=== PATIENT | female | born 1945 | race Caucasian/White ===

== ENCOUNTER 2021-11-19 16:54 | Inpatient (IN) ==
[2021-11-19] MEDS ORDERED: Nitroglycerin 0.4 MG TAB.SUBL SL PRN (19:29)
[2021-11-20] MEDS: Diclofenac Sodium (DR) 50 MG TABLET.DR PO PRN (15:20)
[2021-11-20] MEDS: Azelastine 0.1% Nasal Spray 30 ML BOTTLE NS SCH (20:17)
[2021-11-20] MEDS: Fluticasone Propionate Nasal 50 MCG/SPRAY BOTTLE NS SCH (20:17)
[2021-11-20] MEDS: Nystatin POWDER 30 GM BOTTLE TP SCH (20:18)
[2021-11-20] MEDS: Gabapentin 300 MG CAPSULE PO SCH (20:20)
[2021-11-21] MEDS: *HR* Enoxaparin 40 MG/0.4 ML SYRINGE SQ SCH (06:25)
[2021-11-21 08:07] LABS: Basophils # 0.1 K/mcL (0.0-0.2); Basophils % 0.8 %; Eosinophils # 0.2 K/mcL (0.0-0.6); Eosinophils % 2.5 %; Hematocrit 34.6 % (35.3-44.9); Hemoglobin 11.7 g/dL (11.5-15.4); Immature Granulocytes % 0.3 % (0-4); Lymphocytes # 1.6 K/mcL (0.6-4.6); Mean Corpuscular HGB Conc 33.8 g/dL (31.6-35.5); Mean Corpuscular Hemoglobin 32.3 pg (28.0-33.3); Mean Corpuscular Volume 95.6 fL (83.0-100.0); Mean Platelet Volume 8.2 fL (9.4-12.4); Monocytes # 0.5 K/mcL (0.0-1.3); Neutrophils # 3.7 K/mcL (1.6-8.9); Platelet Count 194 K/mcL (140-400); Red Blood Count 3.62 M/mcL (3.82-4.97); Red Cell Distribution Width 14.2 % (11.5-14.5); Segmented Neutrophils % 61.4 %
[2021-11-21 08:23] LABS: BUN/Creatinine Ratio 20 (6-26); Blood Urea Nitrogen 18 mg/dL (8-23); Calcium 8.5 mg/dL (8.6-10.3); Carbon Dioxide 31 mEq/L (23-29); Chloride 103 mEq/L (98-107); Glucose 88 mg/dL (70-105); Osmolality,Calculated 287 (280-300); Sodium 138 mEq/L (136-145); eGFR For African Americans > 60 (> 60); eGFR For Non-African Americans > 60 (> 60)
[2021-11-21] MEDS: Aspirin Enteric Coated 81 MG Tablet PO SCH (09:04)
[2021-11-21] MEDS: Vitamin B Complex/Vit C/Vit E 1 EACH TABLET PO SCH (09:04)
[2021-11-21] MEDS: Vitamin E 200 UNIT (90MG) CAPSULE PO SCH (09:04)
[2021-11-21] MEDS: CarBAMazepine 100 MG TABLET PO SCH (09:05)
[2021-11-21] MEDS: Furosemide 20 MG TABLET PO SCH (09:08)
[2021-11-21] MEDS: Spironolactone 25 MG TABLET PO SCH (09:09)
[2021-11-21] MEDS: Loratadine 10 MG TABLET PO SCH (09:09)
[2021-11-21] MEDS: Ascorbic Acid 500 MG TABLET PO SCH (09:09)
[2021-11-21] MEDS: Fluticasone Propionate Nasal 50 MCG/SPRAY BOTTLE NS SCH ×2 (09:10→21:08)
[2021-11-21] MEDS: Azelastine 0.1% Nasal Spray 30 ML BOTTLE NS SCH ×2 (09:11→21:08)
[2021-11-21] MEDS: Nystatin POWDER 30 GM BOTTLE TP SCH ×2 (09:15→21:08)
[2021-11-21] MEDS: Gabapentin 300 MG CAPSULE PO SCH (21:07)
[2021-11-21] MEDS: Diclofenac Sodium (DR) 50 MG TABLET.DR PO PRN (21:07)
[2021-11-22] MEDS: *HR* Enoxaparin 40 MG/0.4 ML SYRINGE SQ SCH (05:49)
[2021-11-22] MEDS: Vitamin E 200 UNIT (90MG) CAPSULE PO SCH (08:11)
[2021-11-22] MEDS: CarBAMazepine 100 MG TABLET PO SCH (08:11)
[2021-11-22] MEDS: Aspirin Enteric Coated 81 MG Tablet PO SCH (08:12)
[2021-11-22] MEDS: Ascorbic Acid 500 MG TABLET PO SCH (08:12)
[2021-11-22] MEDS: Loratadine 10 MG TABLET PO SCH (08:13)
[2021-11-22] MEDS: Vitamin B Complex/Vit C/Vit E 1 EACH TABLET PO SCH (08:13)
[2021-11-22] MEDS: Spironolactone 25 MG TABLET PO SCH (08:13)
[2021-11-22] MEDS: Azelastine 0.1% Nasal Spray 30 ML BOTTLE NS SCH ×2 (08:14→22:03)
[2021-11-22] MEDS: Fluticasone Propionate Nasal 50 MCG/SPRAY BOTTLE NS SCH ×2 (08:14→22:03)
[2021-11-22] MEDS: Nystatin POWDER 30 GM BOTTLE TP SCH ×2 (08:19→22:04)
[2021-11-22] MEDS: Ezetimibe [Zetia] 10 MG Tablet PO SCH (08:20)
[2021-11-22] MEDS: Diclofenac Sodium (DR) 50 MG TABLET.DR PO PRN (14:34)
[2021-11-22] MEDS: Gabapentin 300 MG CAPSULE PO SCH (22:02)
[2021-11-23] MEDS: *HR* Enoxaparin 40 MG/0.4 ML SYRINGE SQ SCH (05:07)
[2021-11-23] MEDS: Vitamin B Complex/Vit C/Vit E 1 EACH TABLET PO SCH (08:39)
[2021-11-23] MEDS: Aspirin Enteric Coated 81 MG Tablet PO SCH (08:40)
[2021-11-23] MEDS: Fluticasone Propionate Nasal 50 MCG/SPRAY BOTTLE NS SCH ×2 (08:40→22:19)
[2021-11-23] MEDS: Nystatin POWDER 30 GM BOTTLE TP SCH ×2 (08:40→22:20)
[2021-11-23] MEDS: CarBAMazepine 100 MG TABLET PO SCH (08:40)
[2021-11-23] MEDS: Loratadine 10 MG TABLET PO SCH (08:40)
[2021-11-23] MEDS: Spironolactone 25 MG TABLET PO SCH (08:40)
[2021-11-23] MEDS: Azelastine 0.1% Nasal Spray 30 ML BOTTLE NS SCH ×2 (08:40→22:18)
[2021-11-23] MEDS: Ascorbic Acid 500 MG TABLET PO SCH (08:40)
[2021-11-23] MEDS: Furosemide 20 MG TABLET PO SCH (08:40)
[2021-11-23] MEDS: Vitamin E 200 UNIT (90MG) CAPSULE PO SCH (08:40)
[2021-11-23] MEDS: Sennosides/Docusate Sodium TABLET PO SCH (22:17)
[2021-11-23] MEDS: Gabapentin 300 MG CAPSULE PO SCH (22:19)
[2021-11-24] MEDS: *HR* Enoxaparin 40 MG/0.4 ML SYRINGE SQ SCH (06:17)
[2021-11-24] MEDS: Vitamin B Complex/Vit C/Vit E 1 EACH TABLET PO SCH (09:33)
[2021-11-24] MEDS: Aspirin Enteric Coated 81 MG Tablet PO SCH (09:33)
[2021-11-24] MEDS: Vitamin E 200 UNIT (90MG) CAPSULE PO SCH (09:33)
[2021-11-24] MEDS: Ascorbic Acid 500 MG TABLET PO SCH (09:33)
[2021-11-24] MEDS: CarBAMazepine 100 MG TABLET PO SCH (09:34)
[2021-11-24] MEDS: Sennosides/Docusate Sodium TABLET PO SCH ×2 (09:34→23:06)
[2021-11-24] MEDS: Fluticasone Propionate Nasal 50 MCG/SPRAY BOTTLE NS SCH ×2 (09:34→23:06)
[2021-11-24] MEDS: Spironolactone 25 MG TABLET PO SCH (09:34)
[2021-11-24] MEDS: Azelastine 0.1% Nasal Spray 30 ML BOTTLE NS SCH ×2 (09:34→23:06)
[2021-11-24] MEDS: Loratadine 10 MG TABLET PO SCH (09:34)
[2021-11-24] MEDS: Nystatin POWDER 30 GM BOTTLE TP SCH ×2 (09:35→23:07)
[2021-11-24] MEDS: Ezetimibe [Zetia] 10 MG Tablet PO SCH (09:35)
[2021-11-24] MEDS: Diclofenac Sodium (DR) 50 MG TABLET.DR PO PRN (18:16)
[2021-11-24] MEDS: Gabapentin 300 MG CAPSULE PO SCH (23:07)
[2021-11-25] MEDS: *HR* Enoxaparin 40 MG/0.4 ML SYRINGE SQ SCH (06:43)
[2021-11-25] MEDS: Furosemide 20 MG TABLET PO SCH (09:20)
[2021-11-25] MEDS: Ascorbic Acid 500 MG TABLET PO SCH (09:20)
[2021-11-25] MEDS: Vitamin E 200 UNIT (90MG) CAPSULE PO SCH (09:20)
[2021-11-25] MEDS: Aspirin Enteric Coated 81 MG Tablet PO SCH (09:20)
[2021-11-25] MEDS: CarBAMazepine 100 MG TABLET PO SCH (09:20)
[2021-11-25] MEDS: Vitamin B Complex/Vit C/Vit E 1 EACH TABLET PO SCH (09:20)
[2021-11-25] MEDS: Sennosides/Docusate Sodium TABLET PO SCH ×2 (09:20→21:53)
[2021-11-25] MEDS: Spironolactone 25 MG TABLET PO SCH (09:20)
[2021-11-25] MEDS: Loratadine 10 MG TABLET PO SCH (09:21)
[2021-11-25] MEDS: Nystatin POWDER 30 GM BOTTLE TP SCH ×2 (09:21→21:56)
[2021-11-25] MEDS: Azelastine 0.1% Nasal Spray 30 ML BOTTLE NS SCH ×2 (09:25→21:52)
[2021-11-25] MEDS: Fluticasone Propionate Nasal 50 MCG/SPRAY BOTTLE NS SCH ×2 (09:25→21:53)
[2021-11-25] MEDS: Gabapentin 300 MG CAPSULE PO SCH (21:54)
[2021-11-26] MEDS: *HR* Enoxaparin 40 MG/0.4 ML SYRINGE SQ SCH (06:00)
[2021-11-26] MEDS: Vitamin B Complex/Vit C/Vit E 1 EACH TABLET PO SCH (09:14)
[2021-11-26] MEDS: Aspirin Enteric Coated 81 MG Tablet PO SCH (09:15)
[2021-11-26] MEDS: Loratadine 10 MG TABLET PO SCH (09:16)
[2021-11-26] MEDS: Sennosides/Docusate Sodium TABLET PO SCH ×2 (09:16→20:22)
[2021-11-26] MEDS: CarBAMazepine 100 MG TABLET PO SCH (09:16)
[2021-11-26] MEDS: Ascorbic Acid 500 MG TABLET PO SCH (09:17)
[2021-11-26] MEDS: Ezetimibe [Zetia] 10 MG Tablet PO SCH (09:17)
[2021-11-26] MEDS: Vitamin E 200 UNIT (90MG) CAPSULE PO SCH (09:17)
[2021-11-26] MEDS: Spironolactone 25 MG TABLET PO SCH (09:17)
[2021-11-26] MEDS: Azelastine 0.1% Nasal Spray 30 ML BOTTLE NS SCH ×2 (09:18→20:23)
[2021-11-26] MEDS: Nystatin POWDER 30 GM BOTTLE TP SCH ×2 (09:18→20:23)
[2021-11-26] MEDS: Fluticasone Propionate Nasal 50 MCG/SPRAY BOTTLE NS SCH ×2 (09:18→20:23)
[2021-11-26] MEDS: Gabapentin 300 MG CAPSULE PO SCH (20:22)
[2021-11-27] MEDS: *HR* Enoxaparin 40 MG/0.4 ML SYRINGE SQ SCH (05:54)
[2021-11-27] MEDS: Furosemide 20 MG TABLET PO SCH (07:17)
[2021-11-27] MEDS: Vitamin E 200 UNIT (90MG) CAPSULE PO SCH (07:17)
[2021-11-27] MEDS: Diclofenac Sodium (DR) 50 MG TABLET.DR PO PRN (07:17)
[2021-11-27] MEDS: Aspirin Enteric Coated 81 MG Tablet PO SCH (07:17)
[2021-11-27] MEDS: Sennosides/Docusate Sodium TABLET PO SCH ×2 (07:17→20:11)
[2021-11-27] MEDS: CarBAMazepine 100 MG TABLET PO SCH (07:17)
[2021-11-27] MEDS: Loratadine 10 MG TABLET PO SCH (07:18)
[2021-11-27] MEDS: Ascorbic Acid 500 MG TABLET PO SCH (07:18)
[2021-11-27] MEDS: Azelastine 0.1% Nasal Spray 30 ML BOTTLE NS SCH ×2 (07:18→20:12)
[2021-11-27] MEDS: Fluticasone Propionate Nasal 50 MCG/SPRAY BOTTLE NS SCH ×2 (07:18→20:12)
[2021-11-27] MEDS: Spironolactone 25 MG TABLET PO SCH (07:18)
[2021-11-27] MEDS: Vitamin B Complex/Vit C/Vit E 1 EACH TABLET PO SCH (07:18)
[2021-11-27] MEDS: Nystatin POWDER 30 GM BOTTLE TP SCH ×2 (07:20→20:12)
[2021-11-27] MEDS: Gabapentin 300 MG CAPSULE PO SCH (20:11)
[2021-11-28] MEDS: *HR* Enoxaparin 40 MG/0.4 ML SYRINGE SQ SCH (06:12)
[2021-11-28 07:29] LABS: Hematocrit 33.8 % (35.3-44.9); Hemoglobin 11.3 g/dL (11.5-15.4); Mean Corpuscular HGB Conc 33.4 g/dL (31.6-35.5); Mean Corpuscular Hemoglobin 31.9 pg (28.0-33.3); Mean Corpuscular Volume 95.5 fL (83.0-100.0); Mean Platelet Volume 8.4 fL (9.4-12.4); Platelet Count 187 K/mcL (140-400); Red Blood Count 3.54 M/mcL (3.82-4.97); Red Cell Distribution Width 14.2 % (11.5-14.5); White Blood Count 6.4 K/mcL (4.3-11.1)
[2021-11-28 08:07] LABS: BUN/Creatinine Ratio 16 (6-26); Blood Urea Nitrogen 15 mg/dL (8-23); Calcium 8.4 mg/dL (8.6-10.3); Carbon Dioxide 28 mEq/L (23-29); Chloride 103 mEq/L (98-107); Glucose 83 mg/dL (70-105); Osmolality,Calculated 282 (280-300); Potassium 4.1 mEq/L (3.5-5.1); Sodium 136 mEq/L (136-145); eGFR For African Americans > 60 (> 60); eGFR For Non-African Americans > 60 (> 60)
[2021-11-28] MEDS: Vitamin E 200 UNIT (90MG) CAPSULE PO SCH (10:23)
[2021-11-28] MEDS: Vitamin B Complex/Vit C/Vit E 1 EACH TABLET PO SCH (10:23)
[2021-11-28] MEDS: Ascorbic Acid 500 MG TABLET PO SCH (10:23)
[2021-11-28] MEDS: Aspirin Enteric Coated 81 MG Tablet PO SCH (10:23)
[2021-11-28] MEDS: CarBAMazepine 100 MG TABLET PO SCH (10:24)
[2021-11-28] MEDS: Loratadine 10 MG TABLET PO SCH (10:24)
[2021-11-28] MEDS: Sennosides/Docusate Sodium TABLET PO SCH ×2 (10:24→20:44)
[2021-11-28] MEDS: Azelastine 0.1% Nasal Spray 30 ML BOTTLE NS SCH ×2 (10:25→20:43)
[2021-11-28] MEDS: Spironolactone 25 MG TABLET PO SCH (10:25)
[2021-11-28] MEDS: Nystatin POWDER 30 GM BOTTLE TP SCH ×2 (10:26→20:44)
[2021-11-28] MEDS: Fluticasone Propionate Nasal 50 MCG/SPRAY BOTTLE NS SCH ×2 (10:26→20:43)
[2021-11-28] MEDS: Gabapentin 300 MG CAPSULE PO SCH (20:44)
[2021-11-29] MEDS: *HR* Enoxaparin 40 MG/0.4 ML SYRINGE SQ SCH (06:27)
[2021-11-29] MEDS: Vitamin E 200 UNIT (90MG) CAPSULE PO SCH (08:44)
[2021-11-29] MEDS: Furosemide 20 MG TABLET PO SCH (08:44)
[2021-11-29] MEDS: Aspirin Enteric Coated 81 MG Tablet PO SCH (08:44)
[2021-11-29] MEDS: Ascorbic Acid 500 MG TABLET PO SCH (08:44)
[2021-11-29] MEDS: Loratadine 10 MG TABLET PO SCH (08:44)
[2021-11-29] MEDS: Sennosides/Docusate Sodium TABLET PO SCH ×2 (08:44→20:23)
[2021-11-29] MEDS: Spironolactone 25 MG TABLET PO SCH (08:44)
[2021-11-29] MEDS: Vitamin B Complex/Vit C/Vit E 1 EACH TABLET PO SCH (08:44)
[2021-11-29] MEDS: Fluticasone Propionate Nasal 50 MCG/SPRAY BOTTLE NS SCH ×2 (08:45→20:21)
[2021-11-29] MEDS: Nystatin POWDER 30 GM BOTTLE TP SCH ×2 (08:45→20:22)
[2021-11-29] MEDS: CarBAMazepine 100 MG TABLET PO SCH (08:45)
[2021-11-29] MEDS: Azelastine 0.1% Nasal Spray 30 ML BOTTLE NS SCH ×2 (08:45→20:20)
[2021-11-29] MEDS: Ezetimibe [Zetia] 10 MG Tablet PO SCH (08:48)
[2021-11-29] MEDS: *HR* HYDROcodone/Acet 5/325 mg TABLET PO PRN (14:53)
[2021-11-29] MEDS ORDERED: Diclofenac Sodium (DR) 50 MG TABLET.DR PO PRN (16:49)
[2021-11-29] MEDS: Gabapentin 300 MG CAPSULE PO SCH (20:23)
[2021-11-29 21:03] LABS: Bilirubin,Urine Negative (Negative); Blood,Urine Negative (Negative); Clarity,Urine Clear (Clear); Color,Urine Yellow (Yellow); Glucose,Urine (UA) Normal (Normal); Ketones,Urine Negative (Negative); Leukocyte Esterase,Urine Negative (Negative); Nitrite,Urine Negative (Negative); PH,Urine 6.5 pH Units (5.0-8.0); Protein,Urine Negative (Neg-Trace); Specific Gravity,Urine 1.015 (1.010-1.025); Urobilinogen,Urine Normal (Normal)
[2021-11-30] MEDS: *HR* Enoxaparin 40 MG/0.4 ML SYRINGE SQ SCH (05:59)
[2021-11-30] MEDS: Spironolactone 25 MG TABLET PO SCH (08:32)
[2021-11-30] MEDS: Sennosides/Docusate Sodium TABLET PO SCH ×2 (08:32→23:40)
[2021-11-30] MEDS: CarBAMazepine 100 MG TABLET PO SCH (08:32)
[2021-11-30] MEDS: Vitamin B Complex/Vit C/Vit E 1 EACH TABLET PO SCH (08:32)
[2021-11-30] MEDS: Ascorbic Acid 500 MG TABLET PO SCH (08:32)
[2021-11-30] MEDS: Aspirin Enteric Coated 81 MG Tablet PO SCH (08:33)
[2021-11-30] MEDS: Azelastine 0.1% Nasal Spray 30 ML BOTTLE NS SCH ×2 (08:33→23:40)
[2021-11-30] MEDS: Vitamin E 200 UNIT (90MG) CAPSULE PO SCH (08:33)
[2021-11-30] MEDS: Loratadine 10 MG TABLET PO SCH (08:33)
[2021-11-30] MEDS: Nystatin POWDER 30 GM BOTTLE TP SCH ×2 (08:33→23:41)
[2021-11-30] MEDS: Fluticasone Propionate Nasal 50 MCG/SPRAY BOTTLE NS SCH ×2 (08:33→23:40)
[2021-11-30] MEDS: Gabapentin 300 MG CAPSULE PO SCH (23:39)
[2021-12-01] MEDS: *HR* Enoxaparin 40 MG/0.4 ML SYRINGE SQ SCH (05:49)
[2021-12-01] MEDS: Azelastine 0.1% Nasal Spray 30 ML BOTTLE NS SCH ×2 (12:32→21:02)
[2021-12-01] MEDS: Fluticasone Propionate Nasal 50 MCG/SPRAY BOTTLE NS SCH ×2 (12:32→21:02)
[2021-12-01] MEDS: Loratadine 10 MG TABLET PO SCH (12:32)
[2021-12-01] MEDS: CarBAMazepine 100 MG TABLET PO SCH (12:32)
[2021-12-01] MEDS: Aspirin Enteric Coated 81 MG Tablet PO SCH (12:32)
[2021-12-01] MEDS: Spironolactone 25 MG TABLET PO SCH (12:32)
[2021-12-01] MEDS: Sennosides/Docusate Sodium TABLET PO SCH ×2 (12:33→21:01)
[2021-12-01] MEDS: Nystatin POWDER 30 GM BOTTLE TP SCH ×2 (12:33→21:00)
[2021-12-01] MEDS: Ascorbic Acid 500 MG TABLET PO SCH (12:33)
[2021-12-01] MEDS: Ezetimibe [Zetia] 10 MG Tablet PO SCH (12:33)
[2021-12-01] MEDS: Vitamin B Complex/Vit C/Vit E 1 EACH TABLET PO SCH (12:33)
[2021-12-01] MEDS: Vitamin E 200 UNIT (90MG) CAPSULE PO SCH (12:33)
[2021-12-01] MEDS: Furosemide 20 MG TABLET PO SCH (12:33)
[2021-12-01] MEDS: Gabapentin 300 MG CAPSULE PO SCH (21:01)
[2021-12-02] MEDS: *HR* Enoxaparin 40 MG/0.4 ML SYRINGE SQ SCH (08:20)
[2021-12-02] MEDS: Spironolactone 25 MG TABLET PO SCH (08:21)
[2021-12-02] MEDS: Vitamin E 200 UNIT (90MG) CAPSULE PO SCH (08:21)
[2021-12-02] MEDS: Ascorbic Acid 500 MG TABLET PO SCH (08:21)
[2021-12-02] MEDS: Vitamin B Complex/Vit C/Vit E 1 EACH TABLET PO SCH (08:21)
[2021-12-02] MEDS: Aspirin Enteric Coated 81 MG Tablet PO SCH (08:21)
[2021-12-02] MEDS: CarBAMazepine 100 MG TABLET PO SCH (08:21)
[2021-12-02] MEDS: Loratadine 10 MG TABLET PO SCH (08:22)
[2021-12-02] MEDS: Sennosides/Docusate Sodium TABLET PO SCH ×2 (08:22→21:04)
[2021-12-02] MEDS: Nystatin POWDER 30 GM BOTTLE TP SCH ×2 (08:23→21:04)
[2021-12-02] MEDS: Fluticasone Propionate Nasal 50 MCG/SPRAY BOTTLE NS SCH ×2 (08:24→21:04)
[2021-12-02] MEDS: Azelastine 0.1% Nasal Spray 30 ML BOTTLE NS SCH ×2 (08:24→21:05)
[2021-12-02] MEDS: Gabapentin 300 MG CAPSULE PO SCH (21:03)
[2021-12-02] MEDS: *HR* HYDROcodone/Acet 5/325 mg TABLET PO PRN (21:04)
[2021-12-03] MEDS: *HR* Enoxaparin 40 MG/0.4 ML SYRINGE SQ SCH (05:04)
[2021-12-03 07:52] LABS: Hematocrit 35.7 % (35.3-44.9); Hemoglobin 11.9 g/dL (11.5-15.4); Mean Corpuscular HGB Conc 33.3 g/dL (31.6-35.5); Mean Corpuscular Hemoglobin 32.2 pg (28.0-33.3); Mean Corpuscular Volume 96.5 fL (83.0-100.0); Mean Platelet Volume 8.4 fL (9.4-12.4); Platelet Count 191 K/mcL (140-400); Red Cell Distribution Width 14.2 % (11.5-14.5); White Blood Count 6.6 K/mcL (4.3-11.1)
[2021-12-03] MEDS: Furosemide 20 MG TABLET PO SCH (08:06)
[2021-12-03] MEDS: Vitamin B Complex/Vit C/Vit E 1 EACH TABLET PO SCH (08:06)
[2021-12-03] MEDS: Aspirin Enteric Coated 81 MG Tablet PO SCH (08:06)
[2021-12-03] MEDS: CarBAMazepine 100 MG TABLET PO SCH (08:06)
[2021-12-03 08:07] LABS: BUN/Creatinine Ratio 17 (6-26); Blood Urea Nitrogen 16 mg/dL (8-23); Calcium 8.8 mg/dL (8.6-10.3); Carbon Dioxide 31 mEq/L (23-29); Chloride 101 mEq/L (98-107); Glucose 95 mg/dL (70-105); Osmolality,Calculated 285 (280-300); Potassium 4.1 mEq/L (3.5-5.1); Sodium 137 mEq/L (136-145); eGFR For African Americans > 60 (> 60); eGFR For Non-African Americans 57 (> 60)
[2021-12-03] MEDS: Sennosides/Docusate Sodium TABLET PO SCH ×2 (08:07→20:17)
[2021-12-03] MEDS: Spironolactone 25 MG TABLET PO SCH (08:08)
[2021-12-03] MEDS: Loratadine 10 MG TABLET PO SCH (08:08)
[2021-12-03] MEDS: Ascorbic Acid 500 MG TABLET PO SCH (08:08)
[2021-12-03] MEDS: Nystatin POWDER 30 GM BOTTLE TP SCH ×2 (08:08→20:17)
[2021-12-03] MEDS: Fluticasone Propionate Nasal 50 MCG/SPRAY BOTTLE NS SCH ×2 (08:10→20:16)
[2021-12-03] MEDS: Azelastine 0.1% Nasal Spray 30 ML BOTTLE NS SCH ×2 (08:10→20:15)
[2021-12-03] MEDS: Vitamin E 200 UNIT (90MG) CAPSULE PO SCH (08:20)
[2021-12-03] MEDS: Ezetimibe [Zetia] 10 MG Tablet PO SCH (12:22)
[2021-12-03] MEDS: Gabapentin 300 MG CAPSULE PO SCH (20:16)
[2021-12-03] MEDS: *HR* HYDROcodone/Acet 5/325 mg TABLET PO PRN (20:17)
[2021-12-04] MEDS: *HR* Enoxaparin 40 MG/0.4 ML SYRINGE SQ SCH (06:37)
[2021-12-04] MEDS: Fluticasone Propionate Nasal 50 MCG/SPRAY BOTTLE NS SCH ×2 (09:04→21:33)
[2021-12-04] MEDS: Azelastine 0.1% Nasal Spray 30 ML BOTTLE NS SCH ×2 (09:04→21:34)
[2021-12-04] MEDS: Aspirin Enteric Coated 81 MG Tablet PO SCH (09:05)
[2021-12-04] MEDS: Vitamin B Complex/Vit C/Vit E 1 EACH TABLET PO SCH (09:05)
[2021-12-04] MEDS: Vitamin E 200 UNIT (90MG) CAPSULE PO SCH (09:05)
[2021-12-04] MEDS: Loratadine 10 MG TABLET PO SCH (09:05)
[2021-12-04] MEDS: Ascorbic Acid 500 MG TABLET PO SCH (09:05)
[2021-12-04] MEDS: CarBAMazepine 100 MG TABLET PO SCH (09:05)
[2021-12-04] MEDS: Spironolactone 25 MG TABLET PO SCH (09:06)
[2021-12-04] MEDS: Nystatin POWDER 30 GM BOTTLE TP SCH ×2 (09:06→21:45)
[2021-12-04] MEDS: Sennosides/Docusate Sodium TABLET PO SCH ×2 (09:06→21:29)
[2021-12-04] MEDS: Gabapentin 300 MG CAPSULE PO SCH (21:33)
[2021-12-05] MEDS: *HR* Enoxaparin 40 MG/0.4 ML SYRINGE SQ SCH (06:03)
[2021-12-05] MEDS: Fluticasone Propionate Nasal 50 MCG/SPRAY BOTTLE NS SCH ×2 (08:41→21:24)
[2021-12-05] MEDS: Azelastine 0.1% Nasal Spray 30 ML BOTTLE NS SCH ×2 (08:41→21:23)
[2021-12-05] MEDS: Vitamin E 200 UNIT (90MG) CAPSULE PO SCH (08:42)
[2021-12-05] MEDS: Vitamin B Complex/Vit C/Vit E 1 EACH TABLET PO SCH (08:42)
[2021-12-05] MEDS: Aspirin Enteric Coated 81 MG Tablet PO SCH (08:42)
[2021-12-05] MEDS: Sennosides/Docusate Sodium TABLET PO SCH ×2 (08:43→21:28)
[2021-12-05] MEDS: Furosemide 20 MG TABLET PO SCH (08:43)
[2021-12-05] MEDS: Spironolactone 25 MG TABLET PO SCH (08:43)
[2021-12-05] MEDS: Ascorbic Acid 500 MG TABLET PO SCH (08:43)
[2021-12-05] MEDS: Nystatin POWDER 30 GM BOTTLE TP SCH ×2 (08:43→21:31)
[2021-12-05] MEDS: CarBAMazepine 100 MG TABLET PO SCH (08:43)
[2021-12-05] MEDS: Loratadine 10 MG TABLET PO SCH (08:43)
[2021-12-05] MEDS: Methyl Salicylate/Menthol 85 APPL/85 GM TUBE TP SCH ×2 (17:58→21:27)
[2021-12-05] MEDS ORDERED: Methyl Salicylate/Menthol 85 APPL/85 GM TUBE TP SCH (21:00)
[2021-12-05] MEDS: Gabapentin 300 MG CAPSULE PO SCH (21:23)
[2021-12-06] MEDS: *HR* Enoxaparin 40 MG/0.4 ML SYRINGE SQ SCH (05:32)
[2021-12-06] MEDS: Sennosides/Docusate Sodium TABLET PO SCH ×2 (09:05→21:10)
[2021-12-06] MEDS: Fluticasone Propionate Nasal 50 MCG/SPRAY BOTTLE NS SCH ×2 (09:05→21:09)
[2021-12-06] MEDS: Azelastine 0.1% Nasal Spray 30 ML BOTTLE NS SCH ×2 (09:05→21:09)
[2021-12-06] MEDS: Aspirin Enteric Coated 81 MG Tablet PO SCH (09:05)
[2021-12-06] MEDS: Ezetimibe [Zetia] 10 MG Tablet PO SCH (09:06)
[2021-12-06] MEDS: Nystatin POWDER 30 GM BOTTLE TP SCH ×2 (09:06→21:11)
[2021-12-06] MEDS: CarBAMazepine 100 MG TABLET PO SCH (09:06)
[2021-12-06] MEDS: Loratadine 10 MG TABLET PO SCH (09:06)
[2021-12-06] MEDS: Methyl Salicylate/Menthol 85 APPL/85 GM TUBE TP SCH ×2 (09:06→21:10)
[2021-12-06] MEDS: Spironolactone 25 MG TABLET PO SCH (09:06)
[2021-12-06] MEDS: Vitamin B Complex/Vit C/Vit E 1 EACH TABLET PO SCH (09:06)
[2021-12-06] MEDS: Ascorbic Acid 500 MG TABLET PO SCH (09:06)
[2021-12-06] MEDS: Vitamin E 200 UNIT (90MG) CAPSULE PO SCH (17:12)
[2021-12-06] MEDS: Gabapentin 300 MG CAPSULE PO SCH (21:10)
[2021-12-07] MEDS: *HR* Enoxaparin 40 MG/0.4 ML SYRINGE SQ SCH (06:17)
[2021-12-07] MEDS: Sennosides/Docusate Sodium TABLET PO SCH ×2 (08:29→19:45)
[2021-12-07] MEDS: Spironolactone 25 MG TABLET PO SCH (08:29)
[2021-12-07] MEDS: Aspirin Enteric Coated 81 MG Tablet PO SCH (08:29)
[2021-12-07] MEDS: Loratadine 10 MG TABLET PO SCH (08:29)
[2021-12-07] MEDS: CarBAMazepine 100 MG TABLET PO SCH (08:29)
[2021-12-07] MEDS: Vitamin B Complex/Vit C/Vit E 1 EACH TABLET PO SCH (08:29)
[2021-12-07] MEDS: Ascorbic Acid 500 MG TABLET PO SCH (08:29)
[2021-12-07] MEDS: Furosemide 20 MG TABLET PO SCH (08:29)
[2021-12-07] MEDS: Vitamin E 200 UNIT (90MG) CAPSULE PO SCH (08:29)
[2021-12-07] MEDS: Methyl Salicylate/Menthol 85 APPL/85 GM TUBE TP SCH ×2 (08:30→19:44)
[2021-12-07] MEDS: Nystatin POWDER 30 GM BOTTLE TP SCH ×2 (08:30→19:45)
[2021-12-07] MEDS: Azelastine 0.1% Nasal Spray 30 ML BOTTLE NS SCH ×2 (08:33→19:44)
[2021-12-07] MEDS: Fluticasone Propionate Nasal 50 MCG/SPRAY BOTTLE NS SCH ×2 (08:33→19:44)
[2021-12-07] MEDS: Gabapentin 300 MG CAPSULE PO SCH (19:43)
[2021-12-08] MEDS: *HR* Enoxaparin 40 MG/0.4 ML SYRINGE SQ SCH (05:39)
[2021-12-08] MEDS: Vitamin B Complex/Vit C/Vit E 1 EACH TABLET PO SCH (08:00)
[2021-12-08] MEDS: Vitamin E 200 UNIT (90MG) CAPSULE PO SCH (08:00)
[2021-12-08] MEDS: Aspirin Enteric Coated 81 MG Tablet PO SCH (08:00)
[2021-12-08] MEDS: Azelastine 0.1% Nasal Spray 30 ML BOTTLE NS SCH ×2 (08:00→21:19)
[2021-12-08] MEDS: Sennosides/Docusate Sodium TABLET PO SCH ×2 (08:00→21:22)
[2021-12-08] MEDS: Spironolactone 25 MG TABLET PO SCH (08:00)
[2021-12-08] MEDS: CarBAMazepine 100 MG TABLET PO SCH (08:00)
[2021-12-08] MEDS: Loratadine 10 MG TABLET PO SCH (08:00)
[2021-12-08] MEDS: Ascorbic Acid 500 MG TABLET PO SCH (08:00)
[2021-12-08] MEDS: Fluticasone Propionate Nasal 50 MCG/SPRAY BOTTLE NS SCH ×2 (08:00→21:20)
[2021-12-08] MEDS: Ezetimibe [Zetia] 10 MG Tablet PO SCH (08:01)
[2021-12-08] MEDS: Nystatin POWDER 30 GM BOTTLE TP SCH ×2 (08:05→21:21)
[2021-12-08] MEDS: Methyl Salicylate/Menthol 85 APPL/85 GM TUBE TP SCH ×2 (08:05→21:20)
[2021-12-08] MEDS: Gabapentin 300 MG CAPSULE PO SCH (21:21)
[2021-12-09] MEDS: Acetaminophen 325 MG TABLET PO PRN (01:43)
[2021-12-09] MEDS: *HR* Enoxaparin 40 MG/0.4 ML SYRINGE SQ SCH (06:08)
[2021-12-09] MEDS: CarBAMazepine 100 MG TABLET PO SCH (08:07)
[2021-12-09] MEDS: Sennosides/Docusate Sodium TABLET PO SCH ×2 (08:07→19:43)
[2021-12-09] MEDS: Loratadine 10 MG TABLET PO SCH (08:07)
[2021-12-09] MEDS: Aspirin Enteric Coated 81 MG Tablet PO SCH (08:07)
[2021-12-09] MEDS: Ascorbic Acid 500 MG TABLET PO SCH (08:08)
[2021-12-09] MEDS: Fluticasone Propionate Nasal 50 MCG/SPRAY BOTTLE NS SCH ×2 (08:08→19:43)
[2021-12-09] MEDS: Vitamin B Complex/Vit C/Vit E 1 EACH TABLET PO SCH (08:08)
[2021-12-09] MEDS: Spironolactone 25 MG TABLET PO SCH (08:08)
[2021-12-09] MEDS: Azelastine 0.1% Nasal Spray 30 ML BOTTLE NS SCH ×2 (08:08→19:43)
[2021-12-09] MEDS: Furosemide 20 MG TABLET PO SCH (08:08)
[2021-12-09] MEDS: Vitamin E 200 UNIT (90MG) CAPSULE PO SCH (08:08)
[2021-12-09] MEDS: Methyl Salicylate/Menthol 85 APPL/85 GM TUBE TP SCH ×2 (08:09→19:43)
[2021-12-09] MEDS: Nystatin POWDER 30 GM BOTTLE TP SCH ×2 (08:31→19:43)
[2021-12-09] MEDS: Gabapentin 300 MG CAPSULE PO SCH (19:42)
[2021-12-10] MEDS: *HR* Enoxaparin 40 MG/0.4 ML SYRINGE SQ SCH (05:36)
[2021-12-10] MEDS: Aspirin Enteric Coated 81 MG Tablet PO SCH (08:35)
[2021-12-10] MEDS: Loratadine 10 MG TABLET PO SCH (08:35)
[2021-12-10] MEDS: Vitamin E 200 UNIT (90MG) CAPSULE PO SCH (08:35)
[2021-12-10] MEDS: Spironolactone 25 MG TABLET PO SCH (08:35)
[2021-12-10] MEDS: Ascorbic Acid 500 MG TABLET PO SCH (08:35)
[2021-12-10] MEDS: CarBAMazepine 100 MG TABLET PO SCH (08:35)
[2021-12-10] MEDS: Vitamin B Complex/Vit C/Vit E 1 EACH TABLET PO SCH (08:35)
[2021-12-10] MEDS: Ezetimibe [Zetia] 10 MG Tablet PO SCH (08:36)
[2021-12-10] MEDS: Sennosides/Docusate Sodium TABLET PO SCH ×2 (08:36→20:10)
[2021-12-10] MEDS: Azelastine 0.1% Nasal Spray 30 ML BOTTLE NS SCH ×2 (08:37→20:12)
[2021-12-10] MEDS: Fluticasone Propionate Nasal 50 MCG/SPRAY BOTTLE NS SCH ×2 (08:37→20:11)
[2021-12-10] MEDS: Nystatin POWDER 30 GM BOTTLE TP SCH ×2 (08:37→20:11)
[2021-12-10] MEDS: Methyl Salicylate/Menthol 85 APPL/85 GM TUBE TP SCH ×2 (08:38→20:13)
[2021-12-10] MEDS: *HR* HYDROcodone/Acet 5/325 mg TABLET PO PRN ×2 (11:36→18:47)
[2021-12-10] MEDS: Gabapentin 300 MG CAPSULE PO SCH (20:11)
[2021-12-11] MEDS: Acetaminophen 325 MG TABLET PO PRN (00:06)
[2021-12-11] MEDS: *HR* Enoxaparin 40 MG/0.4 ML SYRINGE SQ SCH (06:23)
[2021-12-11] MEDS: Aspirin Enteric Coated 81 MG Tablet PO SCH (09:42)
[2021-12-11] MEDS: Ascorbic Acid 500 MG TABLET PO SCH (09:43)
[2021-12-11] MEDS: Furosemide 20 MG TABLET PO SCH (09:43)
[2021-12-11] MEDS: Spironolactone 25 MG TABLET PO SCH (09:43)
[2021-12-11] MEDS: Vitamin E 200 UNIT (90MG) CAPSULE PO SCH (09:44)
[2021-12-11] MEDS: CarBAMazepine 100 MG TABLET PO SCH (09:44)
[2021-12-11] MEDS: Vitamin B Complex/Vit C/Vit E 1 EACH TABLET PO SCH (09:44)
[2021-12-11] MEDS: Fluticasone Propionate Nasal 50 MCG/SPRAY BOTTLE NS SCH ×2 (09:45→20:14)
[2021-12-11] MEDS: Loratadine 10 MG TABLET PO SCH (09:45)
[2021-12-11] MEDS: Nystatin POWDER 30 GM BOTTLE TP SCH ×2 (09:46→20:14)
[2021-12-11] MEDS: Azelastine 0.1% Nasal Spray 30 ML BOTTLE NS SCH ×2 (09:46→20:13)
[2021-12-11] MEDS: Methyl Salicylate/Menthol 85 APPL/85 GM TUBE TP SCH ×2 (09:47→20:13)
[2021-12-11] MEDS: Sennosides/Docusate Sodium TABLET PO SCH ×2 (09:48→20:14)
[2021-12-11] MEDS: Gabapentin 300 MG CAPSULE PO SCH (20:14)
[2021-12-12] MEDS: Acetaminophen 325 MG TABLET PO PRN (01:00)
[2021-12-12] MEDS: *HR* Enoxaparin 40 MG/0.4 ML SYRINGE SQ SCH (06:19)
[2021-12-12] MEDS: Vitamin E 200 UNIT (90MG) CAPSULE PO SCH (09:33)
[2021-12-12] MEDS: Vitamin B Complex/Vit C/Vit E 1 EACH TABLET PO SCH (09:33)
[2021-12-12] MEDS: Loratadine 10 MG TABLET PO SCH (09:34)
[2021-12-12] MEDS: Aspirin Enteric Coated 81 MG Tablet PO SCH (09:34)
[2021-12-12] MEDS: Ascorbic Acid 500 MG TABLET PO SCH (09:34)
[2021-12-12] MEDS: CarBAMazepine 100 MG TABLET PO SCH (09:36)
[2021-12-12] MEDS: Spironolactone 25 MG TABLET PO SCH (09:36)
[2021-12-12] MEDS: Sennosides/Docusate Sodium TABLET PO SCH ×2 (09:36→20:46)
[2021-12-12] MEDS: Nystatin POWDER 30 GM BOTTLE TP SCH ×2 (09:37→20:57)
[2021-12-12] MEDS: Fluticasone Propionate Nasal 50 MCG/SPRAY BOTTLE NS SCH ×2 (09:37→20:57)
[2021-12-12] MEDS: Azelastine 0.1% Nasal Spray 30 ML BOTTLE NS SCH ×2 (09:37→20:57)
[2021-12-12] MEDS: Methyl Salicylate/Menthol 85 APPL/85 GM TUBE TP SCH ×2 (09:38→20:57)
[2021-12-12 19:41] VITALS: O2SAT 94
[2021-12-12] MEDS: Gabapentin 300 MG CAPSULE PO SCH (20:58)
[2021-12-13 07:13] VITALS: BP 114/68; PULSE 79; RESP 18; TEMP 97.8
[2021-12-13] MEDS: Vitamin E 200 UNIT (90MG) CAPSULE PO SCH (09:24)
[2021-12-13] MEDS: Vitamin B Complex/Vit C/Vit E 1 EACH TABLET PO SCH (09:24)
[2021-12-13] MEDS: Sennosides/Docusate Sodium TABLET PO SCH (09:24)
[2021-12-13] MEDS: Aspirin Enteric Coated 81 MG Tablet PO SCH (09:25)
[2021-12-13] MEDS: CarBAMazepine 100 MG TABLET PO SCH (09:26)
[2021-12-13] MEDS: Loratadine 10 MG TABLET PO SCH (09:26)
[2021-12-13] MEDS: Ascorbic Acid 500 MG TABLET PO SCH (09:26)
[2021-12-13] MEDS: Spironolactone 25 MG TABLET PO SCH (09:27)
[2021-12-13] MEDS: Fluticasone Propionate Nasal 50 MCG/SPRAY BOTTLE NS SCH (09:27)
[2021-12-13] MEDS: Nystatin POWDER 30 GM BOTTLE TP SCH (09:27)
[2021-12-13] MEDS: Azelastine 0.1% Nasal Spray 30 ML BOTTLE NS SCH (09:27)
[2021-12-13] MEDS: Methyl Salicylate/Menthol 85 APPL/85 GM TUBE TP SCH (09:28)
[2021-12-13] MEDS: Furosemide 20 MG TABLET PO SCH (09:28)
[2021-12-13] MEDS: Ezetimibe [Zetia] 10 MG Tablet PO SCH (10:02)
== END 2021-12-13 15:34 | disposition home health service (06) ==
LOC: INPPIK 11-20 11:04
PROVIDERS: ADMIT Family Medicine; ATTEND Family Medicine